=== PATIENT | male | born 1980 | race Caucasian/White ===

== ENCOUNTER → 2019-10-26 | Outpatient (CLI) | payer OTHER | LOC: COL.RAD 07:17 | DX: R41.3 Other amnesia (principal) ==

== ENCOUNTER → 2020-06-28 | Outpatient (CLI) | payer OTHER | LOC: COL.VAS 13:17 | DX: R06.02 Shortness of breath (principal) ==

== ENCOUNTER → 2020-09-07 | Outpatient (CLI) | payer OTHER | LOC: COL.PUL 12:35 | DX: R06.02 Shortness of breath (principal) | CPT/HCPCS: J7674 ==

== ENCOUNTER 2020-10-11 08:19 | Day surgery (SDC) | payer OTHER ==
[~2020-10-11] VITALS: Ht 167.6 cm; Wt 84.6 kg
[2020-10-11] VITALS (7 sets, daily range): BP systolic 128–155; BP diastolic 71–87; PULSE 78–98; TEMP 97.6–97.9
[2020-10-11] MEDS ORDERED: DESYREL 50MG50 MG PO (08:46)
[2020-10-11] MEDS ORDERED: PRILOSEC 20MG20 MG PO (08:47)
[2020-10-11] MEDS ORDERED: ADDERALL10 MG PO (08:47)
[2020-10-11] MEDS ORDERED: CENTRUM1 TA1 PO (08:48)
[2020-10-11] MEDS ORDERED: ULTRAM 50MG TAB50 MG PO (11:25)
--- NOTE | 2020-10-11 12:15 | NUR ---
Patient returns to room 5 per cart from surgery accompanied by Dayana PATRICK and is awake and alert. Temp 97.9 and room air sats 96%. Exofen dressing dry x3 on lower abdomen. IV fluids infusing. Siderails up x2 and call light in reach. Friend in room. Denies pain or nausea. Sipping on water.
--- NOTE | 2020-10-11 12:30 | NUR ---
Talking with friend. Offers no complaints.
--- NOTE | 2020-10-11 12:45 | NUR ---
Room air sats 96%. Continues to deny need for pain medications.
--- NOTE | 2020-10-11 13:15 | NUR ---
Tolerated muffin and vanilla pudding. Denies nausea.
--- NOTE | 2020-10-11 13:15 | NUR ---
Assisted up to the bathroom. Voids and returns to room. IV discontinued and site is free of redness. Dressing self.
--- NOTE | 2020-10-11 13:45 | NUR ---
Dismissal instructions were given and voiced understanding of these. Provided script for Ultram and follow up appointment date and time.
--- NOTE | 2020-10-11 13:49 | NUR ---
Patient dismissed to home driven by friend and taken to the front door per wheelchair. Assisted into vehicle with all dismissal instructions in hand.
== END 2020-10-11 13:47 | disposition home or self-care (01) ==
LOC: SDCO 08:19
DX: K40.91 Unilateral inguinal hernia, without obstruction or gangrene, recurrent (principal); K40.90 Unilateral inguinal hernia, without obstruction or gangrene, not specified as recurrent; K21.9 Gastro-esophageal reflux disease without esophagitis; F90.9 Attention-deficit hyperactivity disorder, unspecified type; G47.33 Obstructive sleep apnea (adult) (pediatric); G43.909 Migraine, unspecified, not intractable, without status migrainosus
CPT/HCPCS: C1781; J0690; J1100; J1885; J2405; J2704; J3010; J7120